=== PATIENT | male | born 1960 | race Caucasian/White ===

== ENCOUNTER → 2016-09-20 | Outpatient (CLI) | payer BC ==
--- NOTE | 2016-09-20 10:34 | PCVCIMAG ---
APPROVED REPORT Study performed: 09/20/2016 08:35:20 EXAM: Comprehensive 2D, Doppler, and color-flow Echocardiogram Patient Location: Echo lab Status: routine BSA: 2.38 HR: 63 bpmBP: 170/110 mmHg Rhythm: NSR Other Information Study Quality: Adequate Risk Factors: Cardiac Risk Factors: HTN Indications #25 [facility] Aortic valve replacement, Hx of Paroxysmal a-flutter 2D Dimensions LVEF(%): 46.48 (>50%) IVSd: 15.21 (7-11mm)LVOT Diam: 25.05 (18-24mm) LVDd: 52.34 mm PWd: 14.88 (7-11mm)Ascending Ao: 39.62 (22-36mm) LVDs: 40.09 (25-40mm) Left Atrium: 56.76 (27-40mm) Aortic Root: 37.14 mm LV Single Plane 4CH: 37.46 % LV Single Plane 2CH: 48.26 %Esposito's LVEF: 42.86 % Biplane EF: 43.9 % Volumes Left Atrial Volume (Systole) Single Plane 4CH: 111.87 mLSingle Plane 2CH: 94.46 mL LA ESV Index: 46.00 mL/m2 Aortic Valve AoV Peak Heraclio.: 2.01 m/s AO Peak Gr.: 16.16 mmHgLVOT Max P.08 mmHg AO Mean Gr.: 8.15 mmHgLVOT Mean P.02 mmHg AO V2 Mean: 1.32 m/sLVOT Max V: 0.72 m/s AO V2 VTI: 38.69 cmLVOT Mean V: 0.47 m/s MICHAEL (VTI): 1.71 [id number] V1 VTI: 13.46 cm MICHAEL Vmax: 1.76 cm2 SV (LVOT): 66.32 mL Mitral Valve E/A Ratio: 1.2 MV Decel. Time: 267.89 ms MV E Max Heraclio.: 0.84 m/s MV A Heraclio.: 0.70 m/s IVRT: 124.57 ms TDI E/Lateral E': 11.00E/Medial E': 17.00 Pulmonary Valve PV Peak Heraclio.: 0.82 m/sPV Peak Gr.: 2.70 mmHg Pulmonary Vein P Vein S: 0.25 m/sP Vein A: 0.24 m/s P Vein D: 0.37 m/sP Vein A Dur.: 107.3 msec P Vein S/D Ratio: 0.68 Left Ventricle The left ventricle is normal size. There is normal LV segmental wall motion. Moderate concentric left ventricular hypertrophy. Left ventricular systolic function is at the lower limits of normal. LVEF is 50%. Grade II - pseudonormal filling dynamics. Right Ventricle The right ventricle is normal size. The right ventricular systolic function is normal. Atria Left atrium is moderately dilated. Right atrium is mildly dilated. Aortic Valve Normally functioning #[address] [facility] [facility] mechanical valve in the aortic position. Trace aortic regurgitation. There is no aortic valvular stenosis. Mitral Valve The mitral valve is normal in structure. Mild mitral regurgitation. No evidence of mitral valve stenosis. Tricuspid Valve The tricuspid valve is normal in structure. Unable to assess PA pressure due insufficient tricuspid regurgitation. Pulmonic Valve The pulmonary valve is normal in structure. Trace pulmonic regurgitation. Great Vessels The aortic root is normal in size. IVC is normal in size and collapses with >50% inspiration Pericardium There is no pericardial effusion. <Conclusion> The left ventricle is normal size. Moderate concentric left ventricular hypertrophy. Left ventricular systolic function is at the lower limits of normal. Grade II - pseudonormal filling dynamics. The right ventricle is normal size. Left atrium is moderately dilated. Normally functioning #25 [facility] mechanical valve in the aortic position. Mild mitral regurgitation.
== END | disposition home or self-care (01) ==
LOC: PCVCIMAG 09:41
PROVIDERS: ATTEND Internal Medicine Cardiovascular Disease
DX: I08.3 Combined rheumatic disorders of mitral, aortic and tricuspid valves (principal); I10 Essential (primary) hypertension; I48.3 Typical atrial flutter; I44.7 Left bundle-branch block, unspecified; E78.00 Pure hypercholesterolemia, unspecified; I73.9 Peripheral vascular disease, unspecified; I44.0 Atrioventricular block, first degree; Z95.2 Presence of prosthetic heart valve; Z95.4 Presence of other heart-valve replacement; Z79.82 Long term (current) use of aspirin; Z79.01 Long term (current) use of anticoagulants
CPT/HCPCS: 93306; G0463

== ENCOUNTER → 2018-03-06 | Outpatient (CLI) | payer BC ==
--- NOTE | 2018-03-06 10:33 | PCVCIMAG ---
APPROVED REPORT Study performed: 03/06/2018 09:17:05 EXAM: Comprehensive 2D, Doppler, and color-flow Echocardiogram Patient Location: Echo lab Room #: 2Status: routine BSA: 2.46 HR: 86 bpmBP: 120/74 mmHg Rhythm: Atrial Fibrillation Other Information Study Quality: Adequate Risk Factors: Cardiac Risk Factors: HTN, Indications Aortic Valve Disease Congestive Heart Failure LV Function:SystolicDiastolic Atrial Fibrillation Cardiomyopathy S/P AVR #[address] [facility], S/P ablation, LBBB, Edema 2D Dimensions IVSd: 10.96 (7-11mm)LVOT Diam: 26.45 (18-24mm) LVDd: 57.74 mm PWd: 12.82 (7-11mm)Ascending Ao: 23.56 (22-36mm) LVDs: 58.70 (25-40mm) Left Atrium: 51.95 (27-40mm) Aortic Root: 23.25 mm LV Single Plane 4CH: 16.50 % LV Single Plane 2CH: 33.37 % Biplane EF: 23.9 % Volumes Left Atrial Volume (Systole) Single Plane 4CH: 97.33 mLSingle Plane 2CH: 106.89 mL Biplane LA Volume: 103.00 mLLA ESV Index: 42.00 mL/m2 Aortic Valve AoV Peak Heraclio.: 1.98 m/s AO Peak Gr.: 15.59 mmHgLVOT Max P.88 mmHg AO Mean Gr.: 9.07 mmHg AO V2 Mean: 1.45 m/sLVOT Max V: 0.60 m/s AO V2 VTI: 34.01 cm MICHAEL Vmax: 1.67 cm2 Mitral Valve MV E Max Heraclio.: 1.11 m/s MV PHT: 53.02 ms MVA (PHT): 4.15 cm2 Pulmonary Valve PV Peak Heraclio.: 0.68 m/sPV Peak Gr.: 1.85 mmHg Tricuspid Valve TR Peak Heraclio.: 2.39 m/s TR Peak Gr.: 22.81 mmHg TV Vmax: 0.69 m/sPA Pressure: 30.00 mmHg Left Ventricle Left ventricle is mildly dilated. There is global severe hypokinesis of the left ventricle. Discordant septal motion consistent with a LBBB is seen. Mild concentric left ventricular hypertrophy. Left ventricular ejection fraction is severely decreased. LVEF is 20-25%. This study is not technically sufficient to allow evaluation of the LV diastolic function due to atrial fibrillation. Right Ventricle The right ventricle is normal size. Atria Left atrium is moderately dilated. Right atrium is mildly dilated. Aortic Valve A normally functioning prosthetic valve is seen in the aortic position. A #[address] [facility] [facility] aortic valve is seen. No aortic regurgitation is present. There is no aortic valvular stenosis. Mitral Valve The mitral valve is normal in structure. There is no mitral valve regurgitation noted. No evidence of mitral valve stenosis. Tricuspid Valve The tricuspid valve is normal in structure. Trace tricuspid regurgitation with a PA pressure of 30 mmHg. Pulmonic Valve The pulmonary valve is normal in structure. There is no pulmonic valvular regurgitation. Great Vessels The aortic root is normal in size. The ascending aorta is normal in size. Aortic arch is normal in caliber. IVC is normal in size and collapses >50% with inspiration. Pericardium There is no pericardial effusion. There is no pleural effusion. <Conclusion> Left ventricle is mildly dilated. Mild concentric left ventricular hypertrophy. Left ventricular ejection fraction is severely decreased. The right ventricle is normal size. Left atrium is moderately dilated. Right atrium is mildly dilated. A normally functioning prosthetic valve is seen in the aortic position. The mitral valve is normal in structure. Trace tricuspid regurgitation with a PA pressure of 30 mmHg.
== END | disposition home or self-care (01) ==
LOC: PCVCIMAG 09:15
PROVIDERS: ATTEND Internal Medicine Cardiovascular Disease
DX: I50.9 Heart failure, unspecified (principal); I35.8 Other nonrheumatic aortic valve disorders; I48.91 Unspecified atrial fibrillation; I42.9 Cardiomyopathy, unspecified; R60.0 Localized edema; I44.7 Left bundle-branch block, unspecified
CPT/HCPCS: 93306

== ENCOUNTER → 2018-09-18 | Outpatient (CLI) | payer BC ==
--- NOTE | 2018-09-18 12:08 | PCVCIMAG ---
APPROVED REPORT Study performed: 09/18/2018 10:31:25 EXAM: Comprehensive 2D, Doppler, and color-flow Echocardiogram Patient Location: Echo lab Room #: 2Status: routine BSA: 2.48 HR: 60 bpmBP: 126/78 mmHg Rhythm: LBBB Other Information Study Quality: Adequate Indications Aortic Valve Disease Atrial Fibrillation Cardiomyopathy S/P A FIB ABLATION X 2, AV REPLACEMENT #25 [facility] 2D Dimensions IVSd: 11.00 (7-11mm)LVOT Diam: 24.80 (18-24mm) LVDd: 60.92 mm PWd: 11.78 (7-11mm)Ascending Ao: 27.02 (22-36mm) LVDs: 51.30 (25-40mm) Left Atrium: 42.05 (27-40mm) Aortic Root: 25.21 mm LV Single Plane 4CH: 31.95 % LV Single Plane 2CH: 43.86 % Biplane EF: 37.8 % Volumes Left Atrial Volume (Systole) Single Plane 4CH: 83.08 mLSingle Plane 2CH: 73.01 mL Biplane LA Volume: 78.00 mLLA ESV Index: 32.00 mL/m2 Aortic Valve AoV Peak Heraclio.: 2.63 m/s AO Peak Gr.: 29.97 mmHgLVOT Max P.81 mmHg AO Mean Gr.: 18.76 mmHgLVOT Mean P.44 mmHg AO V2 Mean: 2.07 m/sLVOT Max V: 0.79 m/s AO V2 VTI: 47.94 cmLVOT Mean V: 0.57 m/s MICHAEL (VTI): 1.55 [id number] VTI: 15.36 cm MICHAEL Vmax: 1.45 cm2 SV (LVOT): 74.15 mL Mitral Valve E/A Ratio: 0.8 MV Decel. Time: 277.07 ms MV E Max Heraclio.: 0.62 m/s MV A Heraclio.: 0.77 m/s IVRT: 124.57 ms TDI E/Lateral E': 7.75E/Medial E': 10.33 Medial E' Heraclio.: 0.06 m/s Lateral E' Heraclio.: 0.08 m/s Pulmonary Valve PV Peak Heraclio.: 0.99 m/sPV Peak Gr.: 3.92 mmHg Pulmonary Vein P Vein S: 0.31 m/sP Vein A: 0.28 m/s P Vein D: 0.30 m/sP Vein A Dur.: 86.5 msec P Vein S/D Ratio: 1.03 Tricuspid Valve TV Vmax: 0.55 m/s Left Ventricle Left ventricle is mildly dilated. Mild concentric left ventricular hypertrophy. Left ventricular systolic function is mild to moderately decreased. LVEF is 40-45%. Grade I - abnormal relaxation pattern. Right Ventricle The right ventricle is normal size. The right ventricular systolic function is normal. Atria The left atrium size is normal. The right atrium size is normal. Aortic Valve A normally functioning #[address] [facility] valve is seen in the aortic position Mechanical aortic valve is present. Normal prosthetic aortic valve gradient. No aortic regurgitation is present. There is no aortic valvular stenosis. Mitral Valve The mitral valve is normal in structure. There is no mitral valve regurgitation noted. No evidence of mitral valve stenosis. Tricuspid Valve The tricuspid valve is normal in structure. There is no tricuspid valve regurgitation noted. Pulmonic Valve The pulmonary valve is normal in structure. There is no pulmonic valvular regurgitation. Great Vessels The aortic root is normal in size. The ascending aorta is normal in size. Aortic arch is normal in caliber. IVC is normal in size and collapses >50% with inspiration. Pericardium There is no pericardial effusion. There is no pleural effusion. <Conclusion> Left ventricle is mildly dilated. Mild concentric left ventricular hypertrophy. Left ventricular systolic function is mild to moderately decreased. Grade I - abnormal relaxation pattern. The right ventricle is normal size. The left atrium size is normal. A normally functioning #[address] [facility] valve is seen in the aortic position There is no mitral valve regurgitation noted. There is no tricuspid valve regurgitation noted.
== END | disposition home or self-care (01) ==
LOC: PCVCIMAG 10:19
PROVIDERS: ATTEND Internal Medicine Cardiovascular Disease
DX: I35.0 Nonrheumatic aortic (valve) stenosis (principal); I73.9 Peripheral vascular disease, unspecified; I11.0 Hypertensive heart disease with heart failure; I50.9 Heart failure, unspecified; I44.7 Left bundle-branch block, unspecified; I48.91 Unspecified atrial fibrillation; I48.92 Unspecified atrial flutter; G47.33 Obstructive sleep apnea (adult) (pediatric); Z95.2 Presence of prosthetic heart valve
CPT/HCPCS: 93306